=== PATIENT | male | born 1960 | race Caucasian/White ===

== ENCOUNTER 2020-05-04 12:17 | Observation (INO) ==
[2020-05-04] MEDS ORDERED: fentaNYL citrate 100 MCG/2 ML VIAL ONE (13:44)
[2020-05-04] MEDS ORDERED: MIDAZOLAM HCL 1 MG/ML 2ML VIAL ONE (13:44)
[2020-05-04] MEDS ORDERED: HEPARIN (PORCINE) 1000 UNIT/ML 10 ML (CATH LAB USE ONLY) ONE ×2 (13:44→15:01)
[2020-05-04] MEDS ORDERED: NiCARDipine HCL INJ 2.5 MG/ML 10 ML AMP ONE (13:44)
[2020-05-04] MEDS ORDERED: NITROGLYCERIN/D5W 100MCG/ML 20ML SYR ONE (13:45)
[2020-05-04 14:10] LABS: iSTAT Arterial Blood Gas HCO3 29 meg/L (19-24); iSTAT Arterial Blood Gas pCO2 44 mmHg (35-46); iSTAT Arterial Blood Gas pH 7.42 (7.35-7.45); iSTAT Arterial Blood Gas pO2 44 mmHg (80-95); iSTAT Carbon Dioxide 30 mmol/L (24-31); iSTAT Hematocrit 49 % (42-52); iSTAT Hemoglobin 16.7 g/dl (14.0-18.0); iSTAT Potassium 6.6 mmol/L (3.3-5.0); iSTAT Sodium 138 mmol/L (135-144)
[2020-05-04] MEDS ORDERED: CLOPIDOGREL BISULFATE 300 MG TAB ONE (15:14)
--- NOTE | 2020-05-04 15:29 | Post Anesthesia Assessment ---
Date of Service May 04, 2020 Post Sedation Assessment Recovery Score Activity: Moves 4 extremities Respiration: Deep Breath/Cough Circulation: +/-20% PreAnes Value Consciousness: Fully Awake Oxygen Saturation: O2 needed for >90% Discharge Sedation Level of Care: Fast Track Phase II Post Sedation Plan On clinical assessment, the patient appears to have tolerated the sedation without complications. Patient is recovering as anticipated. Patient will continue to be monitored by nursing and may be discharged when sedation discharge criteria are met per below protocol. Upon Completions of procedure up to 15 minutes continue every 5 minute vital signs and the P.A.R. score; then discharge to a Phase I or Fast Track to Phase II per the following guidelines: * Discharge Patient to appropriate Phase II area if PAR is 8 or greater or return to pre- procedure baseline. The post - procedure orders will be as directed. * If PAR score is less than 8 or not return to pre-procedure baseline then patient will follow Phase I monitoring till PAR is reached for Phase II. The Phase I may be done in procedure room or may call to secure a Phase I area. * If naloxone or flumazenil are used for reversal, hold in Phase I for continued monitoring from when last reversal dose was given for a minimum of 60 minutes or longer pending the nurse and/or physician discretion of patient condition before discharge to Phase II. Please call the Sedation Physician to re-evaluate and complete post-note for discharge to Phase II area. Do NOT discharge from procedure sedation or Phase 1 until post- sedation evaluation note is complete by procedure /sedation MD Sedation Discharge Instructions to be given to the patient at discharge to home.
--- NOTE | 2020-05-04 15:35 | Cardiac Catheterization ---
[facility] Data: Planning Director Cardiac Status Clinical evaluation leading to the procedure CAD Presenation: Unstable angina Anginal Classification: CCS III Heart Failure: No Cardiogenic Shock within 24 Hours: No Cardiac Arrest within 24 Hours: No Imaging Studies Past 6 Months: Yes Stress Studies Past 6 Months: Yes Stress Echocardiogram: Yes - Positive and Risk/Extent of Ischemia (High) Diagnostic Physicians Name: Robert Hylton MD Status: Elective Closure Device Percutaneous Entry Location: Radial Closure Device: Radial Band Recommendations: PCI without planned CABG PCI Indication: + Stress Test and Unstable Angina Lesion Segment Name: Proximal LAD Culprit Artery: Yes Stenosis Prior to Rx (%): 95 Chronic Total Occlusion: No IVUS: No FFR: No Pre-Procedure ALEKSEY Flow: 3 Previously Treated Lesion: No Lesion Length (mm): 12 Thrombus Present: No Bifurcation Lesion: Yes Guidewire Across Lesion: Stenosis Post-Procedure (%): 0 Post-Procedure ALEKSEY Flow: 3 Devices(s) Deployed: Yes Yes Intraprocedure Events Significant Disection: No Perforation: No Cardiac Cath Procedure Full Procedure Date May 04, 2020 Pre-Procedure Diagnosis Pre-Procedure Diagnosis: Acute Coronary Syndrome AUC Score AUC Score: 7 Post-Procedure Diagnosis Post-Procedure Diagnosis: Severe CAD, Successful PCI and Normal Intracardiac Pressures Procedure(s) Performed Procedure(s) Performed: Coronary Angiography, Left Heart Cath and Drug Eluting Stent Java Security Engineer Robert Hylton MD [employer] Professor(s) Analia Estimated Blood Loss Estimated Blood Loss: 15 Medication(s) Medication(s): Clopidogrel, Fentanyl, Heparin, Lidocaine 1%, Nicardipine, Nitroglycerin and Versed Summary of Findings Indication: Unstable angina, high risk stress test Access: 6F Fr slender right radial artery Catheters: [place], diagnostic JL 3.5, EBU 3.5 guide Findings: LM -angiographically normal LAD -medium caliber vessel, 95% focal lateproximal stenosis at takeoff of small first diagonal. 40 to 50% latemid stenosis. Distal luminal irregularities as wraps around apex. Circumflex -medium caliber vessel, 40% proximal stenosis, luminal irregularities in large left PLB. RCA -dominant, medium caliber vessel, proximal, mid segment luminal irregularities LVEDP -9 -- PCI -- Antithrombotic therapy: Heparin, clopidogrel Procedure: Left main cannulated with EBU 3.5 guide BMW wire passed across lesion into distal LAD Eyeglass Maker 50 wire placed into first diagonal Proximal LAD lesion predilated with 2.5 compliant balloon Dilated lesion stented with 3.0 x 18 mm Suraj drug-eluting stent First diagonal rewired through stent struts with petroleum inspector supervisor 50 wire Stent post-dilated with 3.0 noncompliant balloon IC vasodilators administered for spasm Post procedure ALEKSEY 3 flow, stent well expanded with minimal residual stenosis and no apparent cardiac complications. Jailed diagonal with residual ostial stenosis but ALEKSEY-3 flow. Arterial Closure: TR band Summary: 1. Severe single vessel coronary artery disease -95% lateproximal LAD stenosis 2. Mild to moderate nonobstructive non-culprit coronary artery disease 40 to 50% latemid LAD 40% proximal circumflex 3. Normal intracardiac filling pressure 4. Successful PCI of proximal to mid LAD with single drug-eluting stent (3.0 x 18 mm Suraj) Recommendations: To PCU for continued monitoring Loaded with clopidogrel 600 mg in Planning Director Continue dual-antiplatelet therapy for at least 6 months Continue statin, and ASCVD risk factor modification Consult cardiac Rehab Hemodynamics Rest Ao:: 113/69/89 Final Ao: 108/46/71 LV: 135/9 Recommendations Recommendations: PCI without planned CABG Specimens Specimens: None Radiation Exposure (mGy) 2556 Contrast (mls) 75 Fluids (cc crystalloids) Fluids (cc crystalloids): 116 Drains Drains: None Anesthesia Moderate Procedural Complication(s) None Disposition PCU I attest to the content of the Intraoperative Record and any orders documented therein. Any exceptions are noted below. [facility] Card Cath Procedure Codes Cardiac Catheterization Procedure 1: Cardiovascular Cath Procedures: 76485 Coronaries and LHC (+/-LV) Moderate Sedation Procedure 1: Sedation/Anesthesia: 14378 Mod Sedation by the same physician;Init15 Min Child Age 5 & Up Procedure 2: Sedation/Anesthesia: 68222 Mod Sedation by the same physician; Ea [id number] Minutes Stenting Procedure 1: Cardiovascular Stent Procedures: 47214 Perc transcatheter placement of intracoronary stent(s), with ang PG Care Time/CCT Total # of Minutes Spent Total Time Spent with Patient: Total time spent is greater than 50% in coordination of care (as documented) at patient's floor/unit and/or counseling patient:
[2020-05-04] MEDS ORDERED: ACETAMINOPHEN 325 MG TAB PO PRN (15:40)
[2020-05-04] MEDS ORDERED: NITROGLYCERIN SL 0.4 MG/TAB TAB SL PRN (15:40)
[2020-05-04] MEDS ORDERED: GLUCAGON FOR INJ 1 MG VIAL SQ PRN (15:45)
[2020-05-04] MEDS ORDERED: CARBOHYDRATES FOR HYPOGLYCEMIA PO PRN (15:45)
[2020-05-04] MEDS ORDERED: SODIUM CHLORIDE 0.9% 1000ML 1,000 ML IV SCH (15:45)
[2020-05-04] MEDS ORDERED: DEXTROSE 50% 50 ML SYRINGE IV PRN (15:45)
[2020-05-04] MEDS ORDERED: GLUCOSE 40% GEL 15 GM TUBE PO PRN (15:45)
[2020-05-04] MEDS ORDERED: GLUCOSE 10 TABS/TUBE PO PRN (15:45)
[2020-05-04] MEDS: INSULIN ASPART 100 UNITS/ML 3 ML PEN SC SCH ×2 (17:07→20:35)
[2020-05-05 06:59] LABS: Basophils # (auto) 0.02 K/uL (0-0.2); Basophils % (auto) 0.4 %; Eosinophils # (auto) 0.16 K/uL (0-0.5); Eosinophils % (auto) 2.9 %; Hematocrit (blood only) 43.7 % (42-52); Hemoglobin 15.2 g/dL (14.0-18.0); Immature Granulocytes # (auto) 0.01 K/uL (0.00-0.02); Immature Granulocytes % (auto) 0.2 %; Lymphocytes % (auto) 30.9 %; Mean Corpuscular Hemoglobin 29.2 pg (25-34); Mean Corpuscular Hgb Conc 34.8 g/dL (32-36); Mean Platelet Volume 10.2 fL (7.4-10.4); Monocytes # (auto) 0.74 K/uL (0.11-0.59); Monocytes % (auto) 13.5 %; Neutrophils # (auto) 2.87 K/uL (1.4-6.5); Neutrophils % (auto) 52.1 %; Platelet Count 207 K/uL (130-400); RDW Coefficient of Variation 13.6 % (11.5-14.5); RDW Standard Deviation 42.1 fL (36.4-46.3)
--- NOTE | 2020-05-05 07:20 | Electrocardiogram Report ---
Test Reason : Blood Pressure : / mmHG Vent. Rate : 083 BPM Atrial Rate : 083 BPM P-R Int : 280 ms QRS Dur : 092 ms QT Int : 356 ms P-R-T Axes : 053 066 058 degrees QTc Int : 418 ms Sinus rhythm with 1st degree A-V block with Premature atrial complexes Otherwise normal ECG No previous ECGs available Confirmed by Joe Hdz ([id number]) on 05/05/2020 7:20:21 AM Referred By: Kirby Hylton Confirmed By:Joe Hdz
[2020-05-05 07:28] LABS: BUN Creatinine Ratio 14.3 (10-20); Calcium 8.3 mg/dl (8.5-10.1); Creatinine Clr Calc Pharmacy 94.3 ml/min; Est GFR (African American) 102.3; Est GFR (Non-African American) 88.3; Potassium 3.7 mmol/L (3.5-5.1)
[2020-05-05 07:59] LABS: Estimated Average Glucose 235 mg/dl; Hemoglobin A1C 9.8 % (4.5-5.6)
[2020-05-05] MEDS: INSULIN ASPART 100 UNITS/ML 3 ML PEN SC SCH ×2 (08:24→12:33)
[2020-05-05] MEDS ORDERED: ATORVASTATIN 40 MG TAB PO SCH (09:00)
[2020-05-05] MEDS ORDERED: ASPIRIN 81 MG ECTAB PO SCH (09:00)
[2020-05-05] MEDS ORDERED: CLOPIDOGREL BISULFATE 75 MG TAB PO SCH (09:00)
--- NOTE | 2020-05-16 13:26 | Discharge Summary ---
Date of Service May 16, 2020 Admission HPI Per Admitting Provider Peter Mayank is a 60-year-old male who presented to the cardiology suite today for a stress echocardiogram. The patient explains that he has been experiencing substernal chest "burning" and exertional dyspnea for approximately 6-8 weeks. The patient explains that this occurs every time he plays basketball or walks up a steep hill. He feels that his symptoms now occur with less vigorous activity. There are no other associated symptoms such as nausea, vomiting, diaphoresis, or radiation of the discomfort. On stress test he walked for 6 minutes and 49 seconds on a standard [facility] protocol attaining 8.2 METS and a peak heart rate of 139 beats per minute ( 87% of the maximum predicted heart rate). Initial blood pressure 115/54 and this increased 199/69 at peak exertion. The patient did develop his substernal chest "burning" as described above. Baseline EKG noted normal sinus rhythm without abnormalities. The patient developed [address] depression in the inferolateral leads during the recovery phase. Baseline echocardiogram noted normal left ventricular systolic function without wall motion abnormality. At peak exercise, hypokinesis was noted of the distal anterior wall, apex, and anteroseptum. The patient's discomfort resolved after approximately 8 minutes of rest. The patient carries a history of diabetes mellitus for 20 years. Unfortunately, this has not been well controlled of late. Past medical and surgical history 1. Hypercholesterolemia 2. Diabetes mellitus 3. Depression 4. 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 Father at 72 from an RI. Had his 1st attack at age 35. Siblings are healthy Discharge Data Consultations 05/04/20 15:46 Consult Cardiac Rehabilitation Routine Procedures Performed Operation Date: 05/04/20 13:00 Actual Procedures p Drug Eluting Stent SGl Vessel - Kirby Hylton MD s Cath, Left with Cors and Vent - Kirby Hylton MD s Cineradiography w/Routine Exam - Kirby Hylton MD Hospital Course (1) CAD (coronary artery disease): Patient underwent cardiac catheterization via right radial artery. He was found to have a 95% lateproximal LAD stenosis. Also had nonobstructive disease involving his latemid LAD (40 to 50%) and proximal circumflex (40%). Underwent PCI with placement of a single drug-eluting stent from his proximal mid LAD (3.0 x 18 mm Suraj). Procedure was uncomplicated. Admitted for observation overnight. Telemetry unremarkable. No access to complications. Post procedure labs stable. No recurrent anginal symptoms. Patient discharged home on dual antiplatelet therapy with aspirin, clopidogrel. Encouraged to work on diabetes management with Dr. Molina. We will follow-up with Dr. Akins in 3 weeks. Discharge Instructions Home Medications aspirin 81 mg PO DAILY 05/04/20 [History Confirmed 05/04/20] metformin 1,000 mg PO DAILY 05/04/20 [History Confirmed 05/04/20] atorvastatin 80 mg tablet 80 mg PO QAM #30 tab 05/05/20 [Rx] clopidogrel 75 mg tablet 75 mg PO QAM #30 tab 05/05/20 [Rx] lisinopril 5 mg tablet 5 mg PO DAILY #30 tab 05/05/20 [Rx] nitroglycerin 0.4 mg sublingual tablet 0.4 mg SUBLINGUAL PRN PRN #30 tab 05/05/20 [Rx] Coding Level of Care Code 17730 OBS Care - Discharge Diagnoses CAD (coronary artery disease) I25.10
== END 2020-05-05 13:56 | disposition home or self-care (01) ==
LOC: CC 12:17 → 2S 12:17
DX: E78.00 Pure hypercholesterolemia, unspecified; Z82.49 Family history of ischemic heart disease and other diseases of the circulatory system; R94.39 Abnormal result of other cardiovascular function study; Z79.899 Other long term (current) drug therapy; I25.110 Atherosclerotic heart disease of native coronary artery with unstable angina pectoris; R94.31 Abnormal electrocardiogram [ECG] [EKG]; E11.9 Type 2 diabetes mellitus without complications; Z87.891 Personal history of nicotine dependence